=== PATIENT | female | born 1980 | race Caucasian/White ===

== ENCOUNTER 2017-11-01 09:19 | Outpatient (CLI) | payer OTHER | END 2017-11-01 09:43 | disposition home or self-care (01) | LOC: RX STUDY 09:19 | DX: N70.13 Chronic salpingitis and oophoritis (principal) ==

== ENCOUNTER 2022-07-29 12:15 | Emergency (ER) | payer OTHER ==
[~2022-07-29] VITALS: Ht 157.5 cm; Wt 78.0 kg
[~2022-07-29 12:15] MED LIST: MEDROXYPROGESTE10 MG PO
[2022-07-29] MEDS ORDERED: VISTARIL25 MG PO (15:17)
== END 2022-07-29 15:51 | disposition home or self-care (01) ==
LOC: ER 12:15
DX: F41.1 Generalized anxiety disorder (principal); F43.0 Acute stress reaction